=== PATIENT | female | born 1950 | race Caucasian/White ===

== ENCOUNTER 2023-05-25 03:22 | Inpatient (IN) | payer MEDICARE, MEDICAID, SELFPAY ==
[2023-05-25] VITALS (57 sets, daily range): BP systolic 69–173; BP diastolic 42–112; PULSE 68–93; RESP 4–25; TEMP 36.4–36.8; O2SAT 77–97
--- NOTE | 2023-05-25 03:15 | RT.EKG_ITS ---
APPROVED REPORT Exam: Resting ECG Reason for Exam: Chest pain Patient Location: E HR:79 bpm ECG Measurements Heart Rate 79 AXIS DC 167 P 56 QRSd 89 QRS 44 QT 398 T 80 QTc 458 Conclusion Sinus rhythm...normal P axis, V-rate 60- 99 Low voltage, precordial leads...precordial leads <1.0mV Narrow complex normal sinus rhythm with a rate of 79. Normal axis. Intervals within normal limits. Low voltage. No ST segment abnormalities. No T wave inversions. T wave flattening in leads I and aVL. No prior for comparison.
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
--- NOTE | 2023-05-25 03:30 | DI.CT_ITS ---
Exam(s) CT CHEST PE CTA EXAM: CT CHEST PE CTA CLINICAL HISTORY: Shortness of breath back pain. TECHNIQUE: Imaging Protocol: Axial CT angiography was performed with multi-slice acquisition and mu lti-planar reconstructions as well as axial, coronal and sagittal MIP reconstructions. CONTRAST MATERIAL: Intravenous: Omnipaque 350 Contrast volume:100 ml COMPARISON: None FINDINGS: Exam is limited by motion. Pulmonary Arteries: Main pulmonary arteries dilated which may indicate pulmonary hypertension. No ev idence of filling defect to suggest pulmonary emboli. Tracheobronchial tree: Patent where visualized. Mediastinum and Vira: No dominant adenopathy or fluid collection. Pulmonary parenchyma: Suboptimally evaluated due to expiratory changes and motion. Interstitial betancourt ges, likely chronic.. Mild emphysematous changes. No consolidation or dominant measurable mass. Pleura: No effusion or pneumothorax. Heart: The heart is mildly dilated, left atrium.. minimal coronary artery calcifications are seen. Aorta: Thoracic aorta non-dilated. No aneurysm. No dissection. Mild atherosclerotic changes. Upper abdomen: Severely limited due to streak artifact from patient's arm position. Bones: Degenerative changes. Tubes, Catheters, and Lines: None IMPRESSION: Exam limited by motion and streak artifact.. No evidence of pulmonary embolism. Dilated pulmonary arteries could indicate pulmonary hypertension . No aortic dissection. Mild emphysematous changes and chronic interstitial changes. RADIATION DOSE DELIVERED: 674.42mGy.cm Total DLP DATA REPOSITORY: All CT scans at this facility are submitted to the National Radiology Data Registry (NRDR) Dose Index Registry (DIR) with the [employer] (ACR). RADIATION OPTIMIZATION: All CT scans at this facility use at least one of these dose optimization te chniques: automated exposure control; mA and/or kV adjustment per patient size (includes targeted exa ms where dose is matched to clinical indication); or iterative reconstruction.
[2023-05-25] MEDS: Nystatin POWDER 15 GM JAR TP (04:07)
[2023-05-25] MEDS: Doxycycline Hyclate 100 MG CAP PO (04:07)
[2023-05-25] MEDS: predniSONE 20 MG TAB 60 MG PO (04:07)
[2023-05-25 04:14] LABS: BE (Venous) 3 mmol/L (-2-3); HCO3 (Venous) 29 mmol/L (23-28); O2 Sat (Venous) 66 %; TCO2 (Venous) 26 mmol/L (24-29); pCO2 (Venous) 53 mmHg (41-51); pH (Venous) 7.34 (7.31-7.41); pO2 (Venous) 34 mmHg
--- NOTE | 2023-05-25 04:15 | DI.US_ITS ---
APPROVED REPORT EXAM: Comprehensive 2D, Doppler, and color-flow Echocardiogram Patient Location: In-Patient Direct Care Worker: Venkat Mgiuel RDMS, RVT Indications: SOB, CHF, COPD, CP Other Information Study Quality: Poor. Technically limited study due to body habitus, inability to position patient, pa tient inability to perform breathing maneuvers. Conclusion Technically suboptimal study Left ventricle appears grossly normal in size. EF is 50 to 55%. No segmental wall motion abnormalit ies are identified Right ventricle appears mildly dilated Both atria are normal in size Aortic valve is probably trileaflet without stenosis or regurgitation Trace mitral and tricuspid regurgitation. Estimated right ventricular systolic pressure is 44 mmHg Wall motion Left Ventricle The left ventricle appears grossly normal size. Unable to perform measurements due to vertical orient ation of left ventricle due to body habitus. Left ventricular systolic function is borderline. There are no segmental wall motion abnormalities There is no ventricular septal defect visualized. LVEF is 50-55%. Right Ventricle Right ventricle is mildly dilated. Right ventricular systolic function appears grossly normal. The RV SP is 43.8 mmHg. Atria The left atrium size is normal. The right atrium size is normal. The interatrial septum is intact wit h no evidence for an atrial septal defect. Aortic Valve Aortic valve is probably trileaflet. There is no aortic valvular stenosis. No aortic regurgitation is present. Mitral Valve The mitral valve is normal in structure. No evidence of mitral valve stenosis. Trace mitral regurgita tion. Tricuspid Valve The tricuspid valve is normal in structure. There is no tricuspid valve stenosis. Trace tricuspid reg urgitation. Pulmonic Valve Pulmonic valve is not well visualized. There is no obvious pulmonic valvular regurgitation. Great Vessels The aortic root is normal in size. Ascending aorta is not well visualized. IVC is normal in size and collapses >50% with inspiration. Pericardium There is no pericardial effusion. 2D Dimensions Ao Root d 2.81 cm F: 2.7 - 3.3 LV Vol A2C d MOD 61.0 mL LVEF (Michelle's) 51.29 % F: 54 - 74 LV Vol A4C d MOD 73.2 mL LV Volume 50.41 mL F: 46 - 106 LV EF A4C MOD 51.5 % LV Volume Index 25.20 mL/m2 F: 29 - 61 LV EF A2C MOD 51.1 % LV Vol Biplane MOD 67.2 mL LV EF Biplane MOD 51.3 % SV 34.48 mL SV Index 17.22 mL/m2 M-Mode TAPSE 1.65 cm (M/F) >1.7 LV Diastology MV E' medial 0.109 (>0.07 m/s) E/A Ratio 0.6 LV E/e MED 5.10 (<14) MV E Vmax 0.56 (0.4-1.3 m/s) MV E' lateral 0.099 (>0.1 m/s) MV A Vmax 0.90 (0.4-1.3 m/s) LV E/e LAT 5.65 (<14) MV E/A Ratio 0.61 MV E/E' medial 5.15 MV E/E' lateral 5.66 Aortic Valve LVOT Area 3.11 cm2 AoV Area Vmax 2.56 cm2 LVOT Vmax 1.40 m/s AoV Area/ BSA (Vmax) 1.28 cm2/m2 LVOT Mean Micky. 0.87 m/s LEEANN Mean Micky. 2.38 cm2 LVOT Peak Grad 7.9 mmHg LEEANN Mean Micky. Index 1.19 cm2/m2 LVOT Mean Grad 3.6 mmHg LVOT VTI 0.239 m LVOT Diam s 1.95 cm AoV Vmax 1.71 m/s Velocity Ratio 0.82 AoV Mean Micky. 1.13 m/s AoV Peak Grad 11.7 mmHg LVOT SV 74.50 mL AoV Mean Grad 5.8 mmHg AoV VTI 0.282 m AoV Area VTI 2.64 cm2 AoV Area/ BSA (VTI) 1.32 cm/m2 Mitral Valve MV DT 283 (160-240 msec) MV PHT 82 msec MV Area PHT 2.68 cm2 MV VTI 0.215 m MV Area VTI 3.47 (4.0-6.0 cm2) Tricuspid Valve TR Peak Grad 40.8 mmHg TR Vmax 3.19 m/s RA Pressure 3.00 mmHg RVSP (TR) 43.8 mmHg
[2023-05-25 04:27] LABS: Abs Immature Grans 0.04 10^3/uL (0.0-0.06); Absolute Basophil Count 0.08 10^3/uL (0.0-0.2); Absolute Eosinophil Count 0.59 10^3/uL (0.0-0.7); Absolute Lymphocyte Count 2.35 10^3/uL (1.2-3.4); Absolute Monocyte Count 0.78 10^3/uL (0.1-0.8); Basophils % 0.7; Eosinophils % 5.1; HCT 48.4 % (36.0-46.0); Immature Grans % 0.3; Lymphocytes % 20.3; MCH 28.3 pg (27.0-33.0); MCV 91 fL (80-95); MPV 9.9 fL (8.0-11.0); Monocytes % 6.7; Neutrophils % 66.9; Platelet Count 310 10^3/uL (130-400); RDW 14.9 % (11.7-14.6); WBC 11.57 10^3/uL (4.4-10.8)
[2023-05-25 04:31] LABS: Absolute Neutrophil Count 7.74 10^3/uL (1.2-6.7)
[2023-05-25 05:03] LABS: ALT 26 U/L (14-59); AST 33 U/L (15-37); Albumin 3.5 g/dL (3.4-5.0); Alkaline Phosphatase 145 U/L (46-116); BUN 17 mg/dL (7-18); Bilirubin, Total 0.4 mg/dL (0.2-1.0); CREATININE 0.7 mg/dL (0.55-1.02); Calcium 9.2 mg/dL (8.5-10.1); Chloride 108 mmol/L (98-107); Glucose 123 mg/dL (74-106); NT-proBNP 235 pg/mL (<300); Potassium 4.6 mmol/L (3.5-5.1); Sodium 146 mmol/L (136-145); Total Protein 9.1 g/dL (6.4-8.2); Troponin I < 50 ng/L (<or=60)
[2023-05-25 05:05] LABS: COVID-19 PCR Negative (Negative); Influenza A PCR Negative (Negative); Influenza B PCR Negative (Negative); RSV PCR Negative (Negative)
[2023-05-25] MEDS: Omnipaque 350 MG/ML 100 ML BTL IJ (05:23)
[2023-05-25] MEDS: Normal Saline - Diluent 50 ML VIAL IJ (05:24)
[2023-05-25 05:26] LABS: Source Nasopharynx
--- NOTE | 2023-05-25 05:53 | DI.VRAD_ITS ---
PROCEDURE INFORMATION: Exam: CTA Chest With Contrast Exam date and time: 05/25/2023 5:01 AM Age: 72 years old Clinical indication: Shortness of breath; Other: Back pain; Additional info: Shortness of breath back pain TECHNIQUE: Imaging protocol: Computed tomographic angiography of the chest with contrast. Exam focused on the arteries. 3D rendering (Not supervised by radiologist): MIP and/or 3D reconstructed images were created by the technologist. Radiation optimization: All CT scans at this facility use at least one of these dose optimization techniques: automated exposure control; mA and/or kV adjustment per patient size (includes targeted exams where dose is matched to clinical indication); or iterative reconstruction. Contrast material: OMNI 350; Contrast volume: 100 ml; Contrast route: INTRAVENOUS (IV); COMPARISON: No relevant prior studies available. FINDINGS: Limitations: Extensive motion and streak artifact. Pulmonary arteries: Enlarged pulmonary trunk and main pulmonary arteries suggesting pulmonary hypertension. No large central pulmonary embolism seen in the pulmonary trunk or in the main pulmonary arteries. The small and distal pulmonary arteries are obscured by streak artifact and motion and poorly evaluated for diagnosis or exclusion of small or distal pulmonary emboli. Aorta: No thoracic aortic aneurysm Thyroid: Thyroid gland partially excluded from view and partially obscured by artifact but grossly unremarkable, as seen, through its visualized portion. Lungs: Mild changes of emphysema. Scattered small alveolar opacities and reticular densities, nonspecific. No region of della pulmonary consolidation. Pleural spaces: No pleural effusion or pneumothorax. Heart: Normal sized heart. Lymph nodes: No pathologically enlarged mediastinal or hilar lymph nodes. Liver: Upper abdominal contents almost completely obscured by motion and streak artifact. Indeterminate hepatic lesions with the largest measuring 3.7 cm x 4.0 cm on image 584 of series 7, poorly evaluated by the current exam. Bones/joints: No acute fracture seen among the bones of the chest. Soft tissues: No gross soft tissue mass or fluid collection seen in the chest wall. IMPRESSION: 1. Enlarged pulmonary trunk and main pulmonary arteries suggesting pulmonary hypertension. 2. No large central pulmonary embolism seen in the pulmonary trunk or in the main pulmonary arteries. The small and distal pulmonary arteries are obscured by streak artifact and motion and poorly evaluated for diagnosis or exclusion of small or distal pulmonary emboli. 3. Indeterminate hypoattenuating hepatic lesions, largely obscured by streak artifact and motion and poorly evaluated. Comparison with prior imaging is recommended. Dictated and Authenticated by: Frankie Daren MD. Ordering:KRISTY Bourgeois MD
[2023-05-25 07:04] LABS: Troponin I < 50 ng/L (<or=60)
[2023-05-25] MEDS: Aspirin 325 MG TAB PO (07:22)
[2023-05-25] MEDS: Furosemide 20 MG/2 ML VIAL IVP (07:22)
[2023-05-25] MEDS: nitroGLYcerin 0.4 MG TAB SL (07:23)
[2023-05-25 07:44] LABS: Lab Add On Test DONE
[2023-05-25 08:49] LABS: Procalcitonin < 0.1 ng/mL
[2023-05-25] MEDS: Ondansetron 4 MG/2 ML VIAL IVP (10:49)
[2023-05-25] MEDS: Pantoprazole 40 MG VIAL IVP (10:50)
[2023-05-25] MEDS: Acetaminophen 325 MG TAB PO ×2 (10:51→18:06)
[2023-05-25] MEDS: Atorvastatin 20 MG TAB PO (10:51)
[2023-05-25] MEDS: methylPREDNISolone SUCC 125 MG VIAL 60 MG IVP (10:51)
[2023-05-25] MEDS: Normal Saline Flush 10 ML SYR IVP ×2 (10:52→15:17)
[2023-05-25] MEDS: Enoxaparin 40 MG/0.4 ML SYR SC (10:52)
[2023-05-25] MEDS: Albuterol/Ipratropium 3 ML UPD VIAL UPD ×2 (12:12→18:25)
[2023-05-25] MEDS: oxyCODONE 15 MG TAB PO ×2 (15:16→21:07)
[2023-05-25] MEDS: Furosemide 40 MG/4 ML VIAL IVP (15:16)
--- NOTE | 2023-05-25 17:42 | TELEP.MEDR_ITS ---
Date of service: 05/25/23 Time of Service: 17:42 Telepharmacy Home Med Rec Allergies Allergies: Penicillins Allergy (Unknown, Unverified 05/25/23 03:42) Interview Person Interviewed: * Patient Quality Quality of Interview/Accuracy of Medication List: Excellent Sources Sources used to compile medication list: Xtract Medication List and SureScripts Changes made to Home Medication List: ADDITIONS: * Lisinopril 40mg PO daily * Doxepin 10mg PO HS * Toprol XL 100ml PO BID * Trazodone 150mg PO HS PRN * Symbicort 80/4.5 1 puff BID DELETIONS: * none CHANGES: * Nifedipine ER 30mg Po daily (changed from 60mg POdaily) * Pregabalin 150mg Po BID (changed from 150mg PO daily) Additional Notes Additional Notes: * none Recommended Changes Recommended Changes(reason for recommendation): * none Attestation: The home medication list is now updated to the best of my knowledge and is ready to be reconciled by the provider. Please contact the [facility] Medication Reconciliation Pharmacist at for any questions.
--- NOTE | 2023-05-25 17:42 | TELEP.MEDREC ---
Date of service: 05/25/23 Time of Service: 17:42 Telepharmacy Home Med Rec Allergies Allergies: Penicillins Allergy (Unknown, Unverified 05/25/23 03:42) Interview Person Interviewed: Patient Quality Quality of Interview/Accuracy of Medication List: Excellent Sources Sources used to compile medication list: Walk-in Medication List and SureScripts Changes made to Home Medication List: ADDITIONS: Lisinopril 40mg PO daily Doxepin 10mg PO HS Toprol XL 100ml PO BID Trazodone 150mg PO HS PRN Symbicort 80/4.5 1 puff BID DELETIONS: none CHANGES: Nifedipine ER 30mg Po daily (changed from 60mg POdaily) Pregabalin 150mg Po BID (changed from 150mg PO daily) Additional Notes Additional Notes: none Recommended Changes Recommended Changes(reason for recommendation): none Attestation: The home medication list is now updated to the best of my knowledge and is ready to be reconciled by the provider. Please contact the TelePharmacy Medication Reconciliation Pharmacist at for any questions.
--- NOTE | 2023-05-25 20:45 | HPE_ITS ---
Date of service: 05/25/23 Time of Service: 09:45 Assessment and Plan Assessment and plan (1) Acute respiratory failure with hypoxia and hypercarbia: Status: Acute Assessment and plan: Due to a combination of CHF and COPD exacerbations/acute bronchitis. Treat with diuretics, steroids, nebulizer treatments, antitussives, empiric doxycycline. Procalcitonin negative. Obtain sputum culture. No evidence of PNA on imaging. (2) Acute on chronic right-sided congestive heart failure: Status: Acute Assessment and plan: As above Diurese. (3) COPD with acute exacerbation: Status: Acute Assessment and plan: As above (4) Musculoskeletal chest pain: Status: Acute Assessment and plan: Treat with scheduled tylenol, oxycodone prn. The patient is also on lyrica. (5) Radiculopathy: Status: Chronic Assessment and plan: I will change the frequency of oxycodone to QID, but will also schedule tylenol. Trial heat. On lyrica. (6) Discharge planning issues: Status: Acute Assessment and plan: Full code C/s PT (7) DVT prophylaxis: Status: Acute Assessment and plan: SC enoxaparin History of Present Illness History of Present Illness Chief Complaint: cough, shortness of breath Narrative: MS Ruby is a 72 year old female with PMHx of non-oxygen dependent COPD, CHFpEF, h/o pulmonary hypertension, h/o prior intentional overdose on BB, for which she had a prolonged hospitalization, including a psychiatric stay, at [facility] in January of this year, who now resides at an [facility] home and was brought to [facility] ED this morning with a couple of days of worsening shortness of breath, productive cough, but no fevers/chills. The patient described vomiting phlegm. She also reported chest pain, which was central, worse with inspiration and cough. She additionally had LUE pain and neck pain - this is chronic, and she takes oxycodone for it. She says she is compliant wiht a low sodium diet, has not gained weight, though she has noticed worsening swelling. Sputum is yellow in color. She states she spent all day yesterday vomiting sputum. In the ER, she was found to be wheezing and fluid overloaded. She required 1L of O2 to saturate 90%. She was found to be edematous. She received IV furosemide as she also had evidence of B lines on POCUS in the ER. Hospitalist admission was requested. While there was a report of hypotension upon arrival to the medical surgical floor, this was not confirmed on a manula recheck and the patient has actually been hypertensive since then. On my repeat visit to get more history, the patient is not satisfied with her pain control, even though her pain is chronic and she got her chronic pain medications for it. She dismisses me from the room, saying thank you, thank you very much, you have a good night. Review of Systems All systems reviewed & are unremarkable except as noted in HPI and below PFSH All Active Problems (Updated 05/25/23 @ 21:36 by Joselyn Felix MD) Radiculopathy (Chronic) Musculoskeletal chest pain (Acute) Discharge planning issues (Acute) DVT prophylaxis (Acute) Acute on chronic right-sided congestive heart failure (Acute) Candidiasis of breast (Acute) Acute respiratory failure with hypoxia and hypercarbia (Acute) COPD with acute exacerbation (Acute) Medical History (Updated 05/25/23 @ 21:36 by Joselyn Felix MD) (HFpEF) heart failure with preserved ejection fraction HTN (hypertension) with goal to be determined Intentional overdose Obesity Social History Smoking/Tobacco Use Status: Current every day Smoking risk assessment performed?: Yes Alcohol Intake: never Drug use: Never Substance use type: does not use Housing: house Meds Allergies and Home Medications Allergies Allergy/AdvReac Type Severity Reaction Status Date / Time Penicillins Allergy Unknown Unverified 05/25/23 03:42 Home Medications Medication Instructions Recorded Confirmed Type albuterol sulfate 90 mcg/actuation 2 puff inhalation QID PRN 05/25/23 05/25/23 History aerosol inhaler atorvastatin 20 mg tablet 20 mg PO DAILY 05/25/23 05/25/23 History budesonide-formoterol HFA 80 1 puff inhalation BID 05/25/23 05/25/23 History mcg-4.5 mcg/actuation aerosol inhaler (Symbicort) doxepin 10 mg capsule 10 mg PO HS 05/25/23 05/25/23 History duloxetine 40 mg capsule,delayed 40 mg PO BID 05/25/23 05/25/23 History release furosemide 20 mg tablet 20 mg PO DAILY 05/25/23 05/25/23 History lisinopril 40 mg tablet 40 mg PO DAILY 05/25/23 05/25/23 History melatonin 10 mg tablet 10 mg PO HS PRN 05/25/23 05/25/23 History metoprolol succinate 100 mg 100 mg PO BID 05/25/23 05/25/23 History tablet,extended release 24 hr nifedipine 30 mg tablet,extended 30 mg PO DAILY 05/25/23 05/25/23 History release oxycodone 15 mg tablet 15 mg PO TID PRN 05/25/23 05/25/23 History pantoprazole 40 mg tablet,delayed 40 mg PO DAILY 05/25/23 05/25/23 History release pregabalin 150 mg capsule 150 mg PO BID 05/25/23 05/25/23 History sennosides 8.6 mg tablet (senna) 8.6 mg PO DAILY PRN 05/25/23 05/25/23 History trazodone 150 mg tablet 150 mg PO HS PRN 05/25/23 05/25/23 History Exam Narrative Exam Narrative: General: Pleasant elderly female who appears uncomfortable, A&Ox3, on 1L of O2 Neurological: A&Ox3, not able to move RLE Psychiatric: Appropriate speech pattern/content Skin: Visible skin intact HEENT: Atraumatic, normocephalic, EOMI, MMM, clear oropharynx, no submandibular or cervical lymphadenopathy, no goiter or JVD Cardiovascular: RRR, no m/r/g, CP is reproducible with palpation Lungs: Wheezing and rales on expiration B Gastrointestinal: soft, nontender, nondistended Genitourinary: did not have a franco Extremities: 1+ BLE edema, not moving RLE Results Imaging Additional studies: CTA chest: Exam limited by motion and streak artifact.. No evidence of pulmonary embolism. ? Dilated pulmonary arteries could indicate pulmonary hypertension. No aortic dissection. Mild emphysematous changes and chronic interstitial changes. Echo: Left ventricle appears grossly normal in size.? EF is 50 to 55%.? No segmental wall motion abnormalities are identified Right ventricle appears mildly dilated Both atria are normal in size Aortic valve is probably trileaflet without stenosis or regurgitation Trace mitral and tricuspid regurgitation. Estimated right ventricular systolic pressure is 44 mmHg EKG: NSR, HR 79, no acute ischemia Labs 05/25/23 03:46 05/25/23 03:46 Labs: Laboratory Results - last 24 hr 05/25/23 05/25/23 05/25/23 03:46 03:46 03:46 WBC 11.57 H RBC 5.30 H Hgb 15.0 Hct 48.4 H MCV 91 MCH 28.3 MCHC 31.0 L RDW 14.9 H Plt Count 310 MPV 9.9 Immature Gran % 0.3 Neutrophils % 66.9 Lymphocytes % 20.3 Monocytes % 6.7 Eosinophils % 5.1 Basophils % 0.7 Nucleated RBC % 0.0 Absolute Neutrophils 7.74 H Absolute Lymphocytes 2.35 Absolute Monocytes 0.78 Absolute Eosinophils 0.59 Absolute Basophils 0.08 VBG pH VBG pCO2 VBG pO2 VBG HCO3 VBG Total CO2 VBG O2 Saturation VBG Base Excess Sodium 146 H Potassium 4.6 Chloride 108 H Carbon Dioxide 28.0 Anion Gap 10.0 BUN 17 Creatinine 0.7 Est GFR (CKD-EPI 2020) 90.70 Glucose 123 H Calcium 9.2 Total Bilirubin 0.4 AST 33 ALT 26 Alkaline Phosphatase 145 H Troponin I < 50 NT-Pro-B Natriuret Pep 235 Total Protein 9.1 H Albumin 3.5 Procalcitonin COVID-19 Source Nasopharynx SARS-CoV-2 (PCR) Negative Influenza Type A (PCR) Negative Influenza Type B (PCR) Negative RSV (PCR) Negative Add-On Test Request 05/25/23 05/25/23 05/25/23 03:46 03:46 06:40 WBC RBC Hgb Hct MCV MCH MCHC RDW Plt Count MPV Immature Gran % Neutrophils % Lymphocytes % Monocytes % Eosinophils % Basophils % Nucleated RBC % Absolute Neutrophils Absolute Lymphocytes Absolute Monocytes Absolute Eosinophils Absolute Basophils VBG pH 7.34 VBG pCO2 53 H VBG pO2 34 VBG HCO3 29 H VBG Total CO2 26 VBG O2 Saturation 66 VBG Base Excess 3 Sodium Potassium Chloride Carbon Dioxide Anion Gap BUN Creatinine Est GFR (CKD-EPI 2020) Glucose Calcium Total Bilirubin AST ALT Alkaline Phosphatase Troponin I < 50 NT-Pro-B Natriuret Pep Total Protein Albumin Procalcitonin < 0.1 COVID-19 Source SARS-CoV-2 (PCR) Influenza Type A (PCR) Influenza Type B (PCR) RSV (PCR) Add-On Test Request 05/25/23 07:44 WBC RBC Hgb Hct MCV MCH MCHC RDW Plt Count MPV Immature Gran % Neutrophils % Lymphocytes % Monocytes % Eosinophils % Basophils % Nucleated RBC % Absolute Neutrophils Absolute Lymphocytes Absolute Monocytes Absolute Eosinophils Absolute Basophils VBG pH VBG pCO2 VBG pO2 VBG HCO3 VBG Total CO2 VBG O2 Saturation VBG Base Excess Sodium Potassium Chloride Carbon Dioxide Anion Gap BUN Creatinine Est GFR (CKD-EPI 2020) Glucose Calcium Total Bilirubin AST ALT Alkaline Phosphatase Troponin I NT-Pro-B Natriuret Pep Total Protein Albumin Procalcitonin COVID-19 Source SARS-CoV-2 (PCR) Influenza Type A (PCR) Influenza Type B (PCR) RSV (PCR) Add-On Test Request DONE Last Vital Signs Temp 36.5 C 05/25/23 19:40 Pulse 90 05/25/23 19:40 Resp 19 05/25/23 19:40 BP 101/69 05/25/23 19:40 Pulse Ox 88 L 05/25/23 19:40 Time Spent Time spent with Patient: 40-54 minutes Time was spent: preparing to see the patient(eg.review tests), obtaining and/or reviewing separately otained hiistory, ordering medications,tests, procedures, referring, communicating with other health critical care nurse, indepentently interpreting results, counseling the patient and care coordination
[2023-05-25] MEDS: Melatonin 3 MG TAB 9 MG PO (21:07)
[2023-05-25] MEDS: Pregabalin 150 MG CAP PO (21:08)
[2023-05-25] MEDS: DULoxetine 20 MG CAP 40 MG PO (23:26)
[2023-05-25] MEDS: Doxepin 10 MG CAP PO (23:27)
[2023-05-25] MEDS: Acetaminophen 325 MG TAB 1000 MG PO (23:29)
[2023-05-26] VITALS (15 sets, daily range): BP systolic 93–140; BP diastolic 57–81; PULSE 60–84; RESP 2–20; TEMP 36.2–37; O2SAT 83–96
--- NOTE | 2023-05-26 | DI.US_ITS ---
Exam(s) US EXTREMITY VENOUS BI EXAM: US EXTREMITY VENOUS BI CLINICAL HISTORY: BLE edema. TECHNIQUE: Bilateral lower extremity venous ultrasound performed using grayscale, color-flow, and sp ectral Doppler analysis. COMPARISON: No exams were available for comparison FINDINGS: The bilateral common femoral, femoral and popliteal veins demonstrate normal compressibility, augment ation, and color Doppler. The posterior tibial veins are patent. IMPRESSION: Right: Negative for DVT Left: Negative for DVT DATA REPOSITORY:
[2023-05-26] MEDS: Ketorolac 15 MG/ML VIAL IVP (02:22)
[2023-05-26] MEDS: Metoprolol 50 MG TAB PO ×2 (02:22→08:21)
[2023-05-26] MEDS: Albuterol/Ipratropium 3 ML UPD VIAL UPD ×3 (05:39→18:56)
[2023-05-26 07:30] LABS: Abs Immature Grans 0.07 10^3/uL (0.0-0.06); Absolute Basophil Count 0.03 10^3/uL (0.0-0.2); Absolute Eosinophil Count 0.04 10^3/uL (0.0-0.7); Absolute Monocyte Count 1.03 10^3/uL (0.1-0.8); Basophils % 0.2; Eosinophils % 0.3; HCT 42.4 % (36.0-46.0); HGB 13.1 g/dL (11.2-15.7); Immature Grans % 0.5; Lymphocytes % 21.8; MCH 27.9 pg (27.0-33.0); MCHC 30.9 % (32.0-36.0); MCV 90 fL (80-95); MPV 9.6 fL (8.0-11.0); Monocytes % 8.1; Neutrophils % 69.1; Platelet Count 310 10^3/uL (130-400); RBC 4.69 10^6/uL (3.93-5.22); RDW 14.9 % (11.7-14.6); RDW-SD 49.5 fL; WBC 12.73 10^3/uL (4.4-10.8)
[2023-05-26 07:36] LABS: Absolute Lymphocyte Count 2.78 10^3/uL (1.2-3.4)
[2023-05-26 07:56] LABS: Anion Gap 7.7 mmol/L (3-11); BUN 32 mg/dL (7-18); CO2 29.3 mmol/L (21.0-32.0); CREATININE 1.1 mg/dL (0.55-1.02); Calcium 8.4 mg/dL (8.5-10.1); Chloride 106 mmol/L (98-107); Estimated GFR 52.73 (mL/min/1.73m2); Glucose 125 mg/dL (74-106); Magnesium 1.8 mg/dL (1.8-2.4); Potassium 4.1 mmol/L (3.5-5.1); Sodium 143 mmol/L (136-145)
[2023-05-26] MEDS: predniSONE 20 MG TAB 40 MG PO (08:21)
[2023-05-26] MEDS: Pregabalin 150 MG CAP PO ×2 (08:21→20:34)
[2023-05-26] MEDS: Doxycycline Hyclate 100 MG CAP PO ×2 (08:21→20:33)
[2023-05-26] MEDS: DULoxetine 20 MG CAP 40 MG PO ×2 (08:21→20:34)
[2023-05-26] MEDS: Acetaminophen 500 MG TAB 1000 MG PO ×2 (08:21→16:20)
[2023-05-26] MEDS: Lisinopril 20 MG TAB 40 MG PO (08:21)
[2023-05-26] MEDS: Pantoprazole 40 MG VIAL IVP (08:22)
[2023-05-26] MEDS: Normal Saline Flush 10 ML SYR IVP ×2 (08:22→16:21)
[2023-05-26] MEDS: Atorvastatin 20 MG TAB PO (08:22)
[2023-05-26] MEDS: Furosemide 40 MG/4 ML VIAL IVP ×3 (08:22→22:08)
[2023-05-26] MEDS: Budesonide/Formoterol 80/4.5 6.9 GM 60 PUFF INH IH ×2 (08:31→19:34)
[2023-05-26] MEDS: oxyCODONE 15 MG TAB PO ×3 (08:37→16:20)
[2023-05-26] MEDS: Enoxaparin 40 MG/0.4 ML SYR SC (09:33)
--- NOTE | 2023-05-26 12:09 | PDOC.CMIN ---
Date of service: 05/26/23 Time of Service: 12:09 Care Management Initial Assmt Initial Assessment REASON FOR HOSPITALIZATION:: Acute respiratory failure with hypoxia and hypercarbia; COPD exacerbation PREVIOUS FUNCTIONAL STATUS/SOCIAL/FAMILY SUPPORTS:: Lauren currently lives in an [facility] home in [place], although she is from [place], [place]. Her [facility] home provider is Jessica Garcia, and her social work case manager is Jana, through [facility]. She has two daughters; per Jana, Kassidy assists her mother with health care decisions, as she is an RN at [employer] [employer] [employer]. Lauren was living independently in her own apartment in [place] until she had a prolonged stay at [facility] in the Psychiatric unit, prior to being placed in her [facility] home. CURRENT FUNCTIONAL STATUS:: Lauren was sitting up in bed when CM met with her. PT was in the room, preparing to work with her. Lauren stated that she does not want to return to the [facility] home where she resides, and she wants to return to her apartment in [place]. She also stated that she has a lot of belongings at the [facility] home which she will need to retrieve. CM discussed this with Lauren, stating that there are concerns from her care team in the community about her ability to return home. The plan will be for her to return to [facility] home, and for her to coordinate an alternate living situation with her community artist, Jana. She agreed to discuss her living situation with Jana; CM called Jana and requested that she contact Lauren. CM will continue to follow. ADVANCE DIRECTIVES:: Not on file at [facility]; Jana will fax a copy. Has patient been provided with info about the portal/API?: Yes Did the patient sign up for the portal?: No CODE STATUS:: Full Code INSURANCE COVERAGE / FINANCIAL ISSUES:: [employer] MCR replacement; [place] [facility] CURRENT HOME/COMMUNITY SERVICES/EQUIPMENT:: Lauren lives in an [facility] home where she has 12/06 care. PRIMARY CARE PHYSICIAN:: Niko Guerrero, [facility] in [place] POTENTIAL DISCHARGE NEEDS:: Coordinated return to [facility] home. PATIENT/FAMILY EDUCATION NEEDS:: Review discharge instructions and limitations, discussion of self care needs including ask me three. ANTICIPATED BARRIERS TO DISCHARGE:: Lauren would like to return to her apartment, although her family and service providers do not feel that she is safe to return home. TRANSPORTATION:: Via home care provider vs [facility] PLAN:: Anticipate Lauren will return to her [facility] home once medically cleared. She will likely transport via private vehicle by her [facility] home care provider vs [facility]. She will follow up with her PCP and discharge plan of care. CM will continue to follow. PFSH All Active Problems (Updated 05/25/23 @ 21:36 by Joselyn Felix MD) Radiculopathy (Chronic) Musculoskeletal chest pain (Acute) Discharge planning issues (Acute) DVT prophylaxis (Acute) Acute on chronic right-sided congestive heart failure (Acute) Candidiasis of breast (Acute) Acute respiratory failure with hypoxia and hypercarbia (Acute) COPD with acute exacerbation (Acute) Medical History (Updated 05/25/23 @ 21:36 by Joselyn Felix MD) (HFpEF) heart failure with preserved ejection fraction HTN (hypertension) with goal to be determined Intentional overdose Obesity Social History Smoking/Tobacco Use Status: Current every day Smoking risk assessment performed?: Yes Alcohol Intake: never Drug use: Never Substance use type: does not use Housing: house
--- NOTE | 2023-05-26 16:10 | IN_ITS ---
Date of service: 05/26/23 PT Notes Visit Reasons: Acute Exacerbation of CHF,?COPD,Pulmonary Hyperten Physical Therapy Inpatient Initial Evaluation Date: 05/26/2023 Referring Doctor: Joselyn Felix MD PT Orders: PT CONSULT: Limited ability Precautions: Fall. Standard. Activity as tolerated. Patient Profile/Admitting Diagnosis: Lauren is a 72-year-old female admitted to the ED due to worsening cough and shortness of breath. Patient is admitted to [facility] for management of acute respiratory failure with hypoxia and hypercarbia, acute on chronic right-sided CHF, COPD exacerbation, as well as musculoskeletal chest pain, and radiculopathy. PMHX: All Active Problems?(Updated 05/25/23 @ 21:36 by Joselyn Felix MD) Radiculopathy (Chronic) Musculoskeletal chest pain (Acute) Discharge planning issues (Acute) DVT prophylaxis (Acute) Acute on chronic right-sided congestive heart failure (Acute) Candidiasis of breast (Acute) Acute respiratory failure with hypoxia and hypercarbia (Acute) COPD with acute exacerbation (Acute) Medical History?(Updated 05/25/23 @ 21:36 by Joselyn Felix MD) (HFpEF) heart failure with preserved ejection fraction HTN (hypertension) with goal to be determined Intentional overdose Obesity Social History/Home Situation: Lived at an [facility] in [place] for 3 weeks now. Previously had her own apartment in [place], [place] close to her 2 daughters. Sun Moulton is her community employment evaluator/case manager. 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 Equipment Owned/DME: Electric scooter, shower chair, FWW, emergency alert device Subjective: Lauren is adamant about not going back to the [facility] home she came from. She verbalized some complaints about her [facility] provider which ALLIE Smith are aware of. She explains that she had a previous injury that caused a deformity of her R lower extremity which she could not feel nor use to ambulate anymore. She adds that she has been wheelchair-bound, she uses her electric scooter as her main mode of mobility at the [facility]. She is able to transfer by doing a pivot with the L lower extremity while holding onto transfer surface. She elaborates that in the past year, she has fallen a total of three times including this last fall. She adds that she the most recent one happened because she was emotionally distraught from dealing with her AF provider. The other fall happened because she was terribly sick and weak. She declined offer of this PT to try front-wheeled walker to safely transfer saying that she is contented with how she has been doing stuff her own way. She agreed to show this provider how she transfers. She reports of back pain that she states has been chronic. She does not feel that there is a decline in her ability to transfer. Objective: General Observation: Shortened and externally rotated R LE at he hip. Telemetry monitoring in place. Mental Status: Alert and oriented as to person, place, time, and purpose. Able to pay attention, focus, and respond appropriately. Pain: Minimal pain in back and L leg Vital Signs: Closley moniored via tele ROM: Right Upper Extremity: Shoulder Flexion WFL. Shoulder abduction WFL. Elbow flexion WFL. Wrist flexion WFL. Functional opening and closing of hand WFL. Left Upper Extremity: Shoulder Flexion WFL. Shoulder abduction WFL. Elbow flexion WFL. Wrist flexion WFL. Functional opening and closing of hand WFL. Right Lower Extremity: Hip flexion unable. Hip abduction unable. Knee flexion unable. Ankle dorsiflexion about 10 degrees. Ankle plantarflexion about 10 degrees. Left Lower Extremity: Hip flexion WFL. Hip abduction WFL. Knee flexion WFL. Ankle dorsiflexion WFL. Ankle plantarflexion WFL. Strength: Right Upper Extremity: Shoulder flexors 5/5. Shoulder abductors 5/5. Elbow flexors 5/5. Elbow extensors 5/5. Multiple Effect Evaporator Operator strong. Left Upper Extremity: Shoulder flexors 5/5. Shoulder abductors 5/5. Elbow flexors 5/5. Elbow extensors 5/5. Multiple Effect Evaporator Operator strong. Right Lower Extremity: Hip flexors 0/5. Hip abductors 0/5. Knee flexors 0/5. Knee extensors 0/5. Ankle dorsiflexors 2-/5. Ankle plantarflexors 2-/5. Left Lower Extremity: Hip flexors 4/5. Hip abductors 4/5. Knee flexors 5/5. Knee extensors 4/5. Ankle dorsiflexors 4/5. Ankle plantarflexors 4/5. Bed Mobility/Transfers: Rolling independent Supine to sit independent Sit to supine independent Sit to stand independent after set up while holding onto transfer surface Stand to sit independent after set up while holding onto transfer surface Bed to reclining chair independent after set up while holding onto transfer surface Reclining chair to bed independent after set up while holding onto transfer surface Gait: N/A. Patient wheelchair-bound. Balance: Static Sitting: Normal Dynamic Sitting: Normal Static Standing: Fair Dynamic Standing: Fair Special Tests: Mobility Limitations Standardized Measure [facility]-PAC 6 clicks Basic Mobility Inpatient Short Form: Raw Score: 21 CMS Score: 29% deficit Informed Consent/Education: Patient was instructed in purpose of PT consult and plan of care. She does not feel that she needs physical therapy because she has declined with her mobility skills as she demonstrated during this evaluation. ASSESSMENT: Patient independently transferred from edge of bed to the wheelchair safely after set up leading with her good L LE with no report of increased back pain. The set up by PT was needed because patient is in a different environment. At the [facility], patient is able to maneuver the toggle in the armrest of her her electric chair to safely position wheelchair in relation to her bed so that she can safely transfer. Patient refused offer of services and with trying out alternative ways to safely move using FWW. She was minimally short of breath but was able to recover with rest. Instructions for set up prior to transfer: 1. For bed to chair transfer, position chair at an angle as close to the head of bed so patient can hold onto chair arm rests. She does not want you to be close so give her space. Patient is able to pivot onto chair on her own while holding onto arm rests. 2. For chair to bed transfer, position chair at an angle close to the foot of the bed so patient can hold onto chair arm rests. She does not want you to be close so give her space. Patient is able to pivot onto bed on her own while holding onto bed rail. Patient presents with clinical signs and symptoms consistent with current/admitting diagnoses that have resulted to mobility limitations, gait instability, generalized weakness, and overall ADL decline as demonstrated by the following impairment level findings: 1. Decreased strength to R LE major muscle groups (chronic) 2. Impaired sitting/standing balance 3. Impaired activity tolerance 4. Limitation of joint range of motion in R LE 5. Shortness of breath Impairments are contributing to the following functional limitations: 1. Increased completion time for mobility ADL performance 2. At risk for falls Patient is assessed as a low complexity based on the following: History: 72-year-old female with past medical history as indicated above Examination: Demonstrable impairment in strength, balance, and mobility level with underlying impairments and functional limitations as exhibited above as well as deficit score of 29% utilizing the [facility] Mobility Inpatient Short Form Presentation: Evolving Decision Makin moderate complexity Goals: Goals X1 week N/A. PT evaluation only. Plan of Care/Treatment Plan: N/A. PT evaluation only. DISCHARGE RECOMMENDATIONS: [X] Home with no service. Home when medically cleared by hospitalist. Refusing therapy services. May benefit from PT/OT to assess safty of home environment. [] Home with services [specify] [] Home with outpatient PT [] [] SNF for continued rehabilitation [] [] Field Services Manager Care [] [] SNF versus LTC based on ability to participate and progress [] TREATMENT CODE/TIME: 24756 x 20 minutes, 56358 x 10 minutes beginning at 15:20 PM. Thank you for the opportunity to participate in the care of this patient. Ariana Mir PT, DPT, CLT [facility] [place], [place]
--- NOTE | 2023-05-26 18:49 | W.PM.PROGNOT ---
Date of Service Date of service: 05/26/23 Time of Service: 18:49 Assessment and Plan Assessment and plan (1) Acute respiratory failure with hypoxia and hypercarbia: Status: Acute Assessment and plan: Due to a combination of CHF and COPD exacerbations/acute bronchitis. Increase diuresis. Continue steroids, nebulizer treatments, antitussives, empiric doxycycline. Procalcitonin negative. I do not see that the sputum culture had been collected, and now her cough is reportedly unproductive. No evidence of PNA on imaging. (2) Acute on chronic right-sided congestive heart failure: Status: Acute Assessment and plan: As above Intensify diuresis. (3) COPD with acute exacerbation: Status: Acute Assessment and plan: As above (4) Musculoskeletal chest pain: Status: Acute Assessment and plan: Treat with scheduled tylenol, oxycodone prn. The patient is also on lyrica. (5) Radiculopathy: Status: Chronic Assessment and plan: As the pain is now better, return to prior (outpatient) dosing of oxycodone. Continue scheduled tylenol. Trial heat. On lyrica. (6) Discharge planning issues: Status: Acute Assessment and plan: Full code PT consulted. Not ready for discharge (7) DVT prophylaxis: Status: Acute Assessment and plan: SC enoxaparin Subjective Subjective Interval history since last seen: Ms Ruby states that she is feeling a lot better. She does not have chest pain today, her breathing is better, coughing has stopped. Denies dizziness/nausea. I just want to go home - to [place]. We discussed that the plan is for her to return to the [facility] home from where the transfer to [place] could be coordinated by her community health care legal assistant. The patient verbalized understanding and agreement. Exam Narrative Exam Narrative: General: Pleasant elderly female who appears is on RA, A&Ox3, audibly wheezing Cardiovascular: RRR, no m/r/g Lungs: I think her rhonchi are louder today; also has rales. Gastrointestinal: soft, nontender, nondistended Genitourinary: no franco Extremities: 1+ BLE edema, improved, has wrinkles; not moving RLE Objective Last Vital Signs Temp 36.3 C L 05/26/23 16:19 Pulse 71 05/26/23 16:19 Resp 19 07/07/23 16:19 BP 130/67 05/26/23 16:19 Pulse Ox 91 L 05/26/23 16:19 Laboratory Results - last 24 hr 05/26/23 05/26/23 07:10 07:10 WBC 12.73 H RBC 4.69 Hgb 13.1 Hct 42.4 MCV 90 MCH 27.9 MCHC 30.9 L RDW 14.9 H Plt Count 310 MPV 9.6 Immature Gran % 0.5 Neutrophils % 69.1 Lymphocytes % 21.8 Monocytes % 8.1 Eosinophils % 0.3 Basophils % 0.2 Nucleated RBC % 0.0 Absolute Neutrophils 8.80 H Absolute Lymphocytes 2.78 Absolute Monocytes 1.03 H Absolute Eosinophils 0.04 Absolute Basophils 0.03 Sodium 143 Potassium 4.1 Chloride 106 Carbon Dioxide 29.3 Anion Gap 7.7 BUN 32 H Creatinine 1.1 H Est GFR (CKD-EPI 2020) 52.73 Glucose 125 H Calcium 8.4 L Magnesium 1.8 Time Spent with Patient Time Spent with Patient: 25-34 minutes Time was spent: preparing to see the patient(eg.review tests), obtaining and/or reviewing separately otained hiistory, ordering medications,tests, procedures, referring, communicating with other health care management specialist, indepentently interpreting results, counseling the patient and care coordination
[2023-05-26] MEDS: traZODone 50 MG TAB 150 MG PO (20:33)
[2023-05-26] MEDS: Melatonin 3 MG TAB 9 MG PO (20:40)
[2023-05-26] MEDS: NIFEdipine-CR 30 MG TABCR PO (22:06)
[2023-05-26] MEDS: Doxepin 10 MG CAP PO (22:11)
[2023-05-27] VITALS (8 sets, daily range): BP systolic 91–128; BP diastolic 62–79; PULSE 66–78; RESP 4–22; TEMP 36.1–37.1; O2SAT 86–94
[2023-05-27] MEDS: Acetaminophen 500 MG TAB 1000 MG PO ×3 (00:30→15:28)
[2023-05-27] MEDS: Albuterol/Ipratropium 3 ML UPD VIAL UPD ×3 (05:49→17:39)
[2023-05-27 07:23] LABS: Abs Immature Grans 0.04 10^3/uL (0.0-0.06); Absolute Basophil Count 0.05 10^3/uL (0.0-0.2); Absolute Eosinophil Count 0.08 10^3/uL (0.0-0.7); Absolute Lymphocyte Count 3.55 10^3/uL (1.2-3.4); Absolute Monocyte Count 0.98 10^3/uL (0.1-0.8); Absolute Neutrophil Count 7.38 10^3/uL (1.2-6.7); Basophils % 0.4; Eosinophils % 0.7; HCT 43.6 % (36.0-46.0); HGB 13.6 g/dL (11.2-15.7); Immature Grans % 0.3; Lymphocytes % 29.4; MCH 28.3 pg (27.0-33.0); MCHC 31.2 % (32.0-36.0); MCV 91 fL (80-95); Monocytes % 8.1; Neutrophils % 61.1; RDW 14.9 % (11.7-14.6); RDW-SD 49.6 fL; WBC 12.08 10^3/uL (4.4-10.8)
[2023-05-27] MEDS: Doxycycline Hyclate 100 MG CAP PO ×2 (07:35→20:36)
[2023-05-27] MEDS: Pregabalin 150 MG CAP PO ×2 (07:35→20:36)
[2023-05-27 07:36] LABS: Anion Gap 10.2 mmol/L (3-11); BUN 39 mg/dL (7-18); CO2 28.8 mmol/L (21.0-32.0); CREATININE 0.9 mg/dL (0.55-1.02); Calcium 8.4 mg/dL (8.5-10.1); Chloride 107 mmol/L (98-107); Estimated GFR 67.08 (mL/min/1.73m2); Glucose 104 mg/dL (74-106); Magnesium 1.7 mg/dL (1.8-2.4); Potassium 3.7 mmol/L (3.5-5.1); Sodium 146 mmol/L (136-145)
[2023-05-27] MEDS: DULoxetine 20 MG CAP 40 MG PO ×2 (07:36→20:36)
[2023-05-27] MEDS: Lisinopril 20 MG TAB 40 MG PO (07:36)
[2023-05-27] MEDS: predniSONE 20 MG TAB 40 MG PO (07:36)
[2023-05-27] MEDS: Pantoprazole 40 MG VIAL IVP (07:36)
[2023-05-27] MEDS: Furosemide 40 MG/4 ML VIAL 60 MG IVP ×2 (07:36→15:28)
[2023-05-27] MEDS: Atorvastatin 20 MG TAB PO (07:36)
[2023-05-27] MEDS: Normal Saline Flush 10 ML SYR IVP ×2 (07:37→15:28)
[2023-05-27 07:45] LABS: Diff Comment Diff Reviewed; RBC Morphology Normal
[2023-05-27] MEDS: oxyCODONE 15 MG TAB PO ×3 (07:47→20:37)
[2023-05-27] MEDS: Budesonide/Formoterol 80/4.5 6.9 GM 60 PUFF INH IH ×2 (07:52→19:24)
[2023-05-27] MEDS: Enoxaparin 40 MG/0.4 ML SYR SC (09:40)
--- NOTE | 2023-05-27 16:35 | W.PM.PROGNOT ---
Date of Service Date of service: 05/27/23 Time of Service: 16:38 Assessment and Plan Assessment and plan (1) Acute respiratory failure with hypoxia and hypercarbia: Status: Acute Assessment and plan: Due to a combination of CHF and COPD exacerbations/acute bronchitis. Now on RA with O2 saturations generally in the low 90's. Diuresing. Continue steroids, nebulizer treatments, antitussives, empiric doxycycline. Procalcitonin negative. No evidence of PNA on imaging. (2) Acute on chronic right-sided congestive heart failure: Status: Acute Assessment and plan: As above Intensify diuresis. (3) COPD with acute exacerbation: Status: Acute Assessment and plan: As above (4) Musculoskeletal chest pain: Status: Acute Assessment and plan: Treat with scheduled tylenol, oxycodone prn. The patient is also on lyrica. (5) Radiculopathy: Status: Chronic Assessment and plan: As the pain is now better, has returned to prior (outpatient) dosing of oxycodone. Continue scheduled tylenol. Trial heat. On lyrica. (6) Discharge planning issues: Status: Acute Assessment and plan: Full code PT consulted. Not ready for discharge (7) DVT prophylaxis: Status: Acute Assessment and plan: SC enoxaparin Subjective Subjective Patient reports: no new complaints, feels better and tolerating a regular diet; denies shortness of breath or afebrile Exam Narrative Exam Narrative: General: Pleasant, smiling, cooperative. Cardiovascular: RRR, no murmur. Lungs: Coarse exp wheezes throughout but good air excursion. Gastrointestinal: soft, nontender, nondistended Genitourinary: no franco Extremities: 1+ BLE edema Objective Last Vital Signs Temp 36.8 C 05/27/23 15:16 Pulse 78 05/27/23 15:16 Resp 22 05/27/23 06:46 BP 91/62 L 05/27/23 15:16 Pulse Ox 90 L 05/27/23 15:16 Laboratory Results - last 24 hr 05/27/23 05/27/23 06:41 06:41 WBC 12.08 H RBC 4.80 Hgb 13.6 Hct 43.6 MCV 91 MCH 28.3 MCHC 31.2 L RDW 14.9 H Plt Count MPV Immature Gran % 0.3 Neutrophils % 61.1 Lymphocytes % 29.4 Monocytes % 8.1 Eosinophils % 0.7 Basophils % 0.4 Nucleated RBC % 0.0 Absolute Neutrophils 7.38 H Absolute Lymphocytes 3.55 H Absolute Monocytes 0.98 H Absolute Eosinophils 0.08 Absolute Basophils 0.05 RBC Morphology Normal Sodium 146 H Potassium 3.7 Chloride 107 Carbon Dioxide 28.8 Anion Gap 10.2 BUN 39 H Creatinine 0.9 Est GFR (CKD-EPI 2020) 67.08 Glucose 104 Calcium 8.4 L Magnesium 1.7 L Time Spent with Patient Time Spent with Patient: 25-34 minutes Time was spent: preparing to see the patient(eg.review tests), obtaining and/or reviewing separately otained hiistory, ordering medications,tests, procedures, referring, communicating with other health child care associate teacher, indepentently interpreting results and counseling the patient
[2023-05-27] MEDS: NIFEdipine-CR 30 MG TABCR PO (20:36)
[2023-05-27] MEDS: Doxepin 10 MG CAP PO (20:37)
[2023-05-28] VITALS (8 sets, daily range): BP systolic 115–128; BP diastolic 66–78; PULSE 55–88; RESP 1–22; TEMP 36.6–37.2; O2SAT 88–98
[2023-05-28] MEDS: Acetaminophen 500 MG TAB 1000 MG PO ×3 (00:30→15:30)
[2023-05-28] MEDS: Albuterol/Ipratropium 3 ML UPD VIAL UPD ×3 (05:35→17:35)
[2023-05-28] MEDS: Metoprolol 50 MG TAB PO ×2 (06:23→14:06)
[2023-05-28 06:37] LABS: Abs Immature Grans 0.04 10^3/uL (0.0-0.06); Absolute Basophil Count 0.07 10^3/uL (0.0-0.2); Absolute Eosinophil Count 0.23 10^3/uL (0.0-0.7); Absolute Lymphocyte Count 4.14 10^3/uL (1.2-3.4); Basophils % 0.6; Eosinophils % 1.9; HCT 44.2 % (36.0-46.0); Immature Grans % 0.3; Lymphocytes % 34.6; MCH 28.4 pg (27.0-33.0); MCHC 31.7 % (32.0-36.0); MCV 90 fL (80-95); MPV 10.1 fL (8.0-11.0); Monocytes % 7.4; Neutrophils % 55.2; Platelet Count 309 10^3/uL (130-400); RBC 4.93 10^6/uL (3.93-5.22); RDW 14.6 % (11.7-14.6); RDW-SD 48.5 fL; WBC 11.96 10^3/uL (4.4-10.8)
[2023-05-28 06:43] LABS: Absolute Monocyte Count 0.89 10^3/uL (0.1-0.8)
[2023-05-28] MEDS: Budesonide/Formoterol 80/4.5 6.9 GM 60 PUFF INH IH ×2 (07:55→19:48)
[2023-05-28] MEDS: Furosemide 40 MG/4 ML VIAL IVP (08:14)
[2023-05-28] MEDS: Lisinopril 20 MG TAB 40 MG PO (08:14)
[2023-05-28] MEDS: predniSONE 20 MG TAB 40 MG PO (08:14)
[2023-05-28] MEDS: DULoxetine 20 MG CAP 40 MG PO ×2 (08:14→19:47)
[2023-05-28] MEDS: Atorvastatin 20 MG TAB PO (08:14)
[2023-05-28] MEDS: Pregabalin 150 MG CAP PO ×2 (08:14→19:48)
[2023-05-28] MEDS: Doxycycline Hyclate 100 MG CAP PO ×2 (08:14→19:47)
[2023-05-28] MEDS: Pantoprazole 40 MG VIAL IVP (08:14)
[2023-05-28] MEDS: Normal Saline Flush 10 ML SYR IVP ×2 (08:14→13:17)
[2023-05-28] MEDS: oxyCODONE 15 MG TAB PO ×3 (10:05→21:08)
[2023-05-28] MEDS: Enoxaparin 40 MG/0.4 ML SYR SC (10:05)
[2023-05-28] MEDS: Ketorolac 15 MG/ML VIAL IVP (13:17)
--- NOTE | 2023-05-28 15:32 | W.PM.PROGNOT ---
Date of Service Date of service: 05/28/23 Time of Service: 15:33 Assessment and Plan Assessment and plan (1) Acute respiratory failure with hypoxia and hypercarbia: Status: Acute Assessment and plan: Due to a combination of CHF and COPD exacerbations/acute bronchitis. Now on RA with O2 saturations generally in the low 90's. Diuresing. Continue steroids, nebulizer treatments, antitussives, empiric doxycycline. Procalcitonin negative. Stop doxycycline at time of d/c. No evidence of PNA on imaging. (2) Acute on chronic right-sided congestive heart failure: Status: Acute Assessment and plan: As above Now on oral lasix 40mg daily. (3) COPD with acute exacerbation: Status: Acute Assessment and plan: As above (4) Musculoskeletal chest pain: Status: Acute Assessment and plan: Treat with scheduled tylenol, oxycodone prn. The patient is also on lyrica. (5) Radiculopathy: Status: Chronic Assessment and plan: As the pain is now better, has returned to prior (outpatient) dosing of oxycodone. Continue scheduled tylenol. Trial heat. On lyrica. (6) Discharge planning issues: Status: Acute Assessment and plan: Full code PT consulted. Planned d/c in AM (7) DVT prophylaxis: Status: Acute Assessment and plan: SC enoxaparin Subjective Subjective Patient reports: no new complaints, feels better and afebrile; denies nausea, vomiting or shortness of breath Exam Narrative Exam Narrative: General: Pleasant, smiling, cooperative. Lying n bed Cardiovascular: RRR, no murmur. Lungs: Soft exp wheeze; much improved. Good air movement. Gastrointestinal: soft, nontender, nondistended Genitourinary: no franco Extremities: 1+ BLE edema Objective Last Vital Signs Temp 37.2 C 05/28/23 11:20 Pulse 88 05/28/23 11:20 Resp 18 05/28/23 11:20 BP 120/78 05/28/23 11:20 Pulse Ox 97 05/28/23 11:20 Laboratory Results - last 24 hr 05/28/23 06:00 WBC 11.96 H RBC 4.93 Hgb 14.0 Hct 44.2 MCV 90 MCH 28.4 MCHC 31.7 L RDW 14.6 Plt Count 309 MPV 10.1 Immature Gran % 0.3 Neutrophils % 55.2 Lymphocytes % 34.6 Monocytes % 7.4 Eosinophils % 1.9 Basophils % 0.6 Nucleated RBC % 0.0 Absolute Neutrophils 6.60 Absolute Lymphocytes 4.14 H Absolute Monocytes 0.89 H Absolute Eosinophils 0.23 Absolute Basophils 0.07 Time Spent with Patient Time Spent with Patient: 25-34 minutes Time was spent: preparing to see the patient(eg.review tests), obtaining and/or reviewing separately otained hiistory, ordering medications,tests, procedures, referring, communicating with other health healthcare applications analyst, indepentently interpreting results and counseling the patient
[2023-05-28] MEDS: Doxepin 10 MG CAP PO (21:08)
[2023-05-28] MEDS: Melatonin 3 MG TAB 9 MG PO (21:08)
[2023-05-28] MEDS: NIFEdipine-CR 30 MG TABCR PO (21:08)
[2023-05-28] MEDS: traZODone 50 MG TAB 150 MG PO (21:08)
[2023-05-29] VITALS (7 sets, daily range): BP systolic 118; BP diastolic 78; PULSE 50–68; RESP 7–20; TEMP 36.9; O2SAT 84–94
[2023-05-29] MEDS: Albuterol/Ipratropium 3 ML UPD VIAL UPD ×2 (00:38→06:02)
[2023-05-29] MEDS: Acetaminophen 500 MG TAB 1000 MG PO ×2 (00:39→08:29)
--- NOTE | 2023-05-29 00:51 | NUR.NOTE ---
Nursing Note: SpO2 assessed prior to neb tx and noted to be consistently in mid-80s on RA. Improved to 92% after tx. Pt refused to wear NC.
[2023-05-29] MEDS: Metoprolol 50 MG TAB PO (06:38)
[2023-05-29] MEDS: Budesonide/Formoterol 80/4.5 6.9 GM 60 PUFF INH IH (07:57)
--- NOTE | 2023-05-29 08:02 | OTIE_ITS ---
Occupational Therapy Notes Inpatient Occupational Therapy Evaluation Date: 05/29/23 Referring Doctor:Joselyn Felix MD OT Orders: Fall, standard, full Precautions: Non -Urgent PATIENT PROFILE/ADMITTING DIAGNOSIS: Pt is a 72 year old female who was referred to skilled Occupational Therapy services for a dx of worsening cough and shortness of breath.She is admitted to [facility] for management of acute respiratory failure with hypoxia and hypercarbia, acute on chronic right-sided CHF, COPD exacerbation, as well as musculoskeletal chest pain, and radiculopathy. Past Medical History: All Active Problems?(Updated 05/25/23 @ 21:36 by Joselyn Felix MD) Radiculopathy (Chronic) Musculoskeletal chest pain (Acute) Discharge planning issues (Acute) DVT prophylaxis (Acute) Acute on chronic right-sided congestive heart failure (Acute) Candidiasis of breast (Acute) Acute respiratory failure with hypoxia and hypercarbia (Acute) COPD with acute exacerbation (Acute) Medical History?(Updated 05/25/23 @ 21:36 by Joselyn Felix MD) (HFpEF) heart failure with preserved ejection fraction HTN (hypertension) with goal to be determined Intentional overdose Obesity Social History/Home Situation: Lauren currently lives in an [facility] home in [place] but states that she iis from [place], [place]. She has two daughters who she speaks about briefly when asked. Lauren was living (I) in her own apartment in [place] until she had a prolonged stay at [facility] in the Psychiatric unit per CM note. Pt states that she wants to return to her apartment and wants to live (I) when she leaves here. SUBJECTIVE: Pt was lying in bed when OT arrived. She reports that she is doing well but barely awake this morning noting that everyone keeps coming into her room. OBJECTIVE: General Observation: Pleasant, IV in UE Mental Status: A&Ox3 Pain: no c/o pain with this OT ROM: RUE AROM WFL L UE AROM WFL STRENGTH: RUE 5/5 throughout LUE 5/5 throughout FUNCTIONAL MOBILITY/ADLS: Pt refused ADLS at this time. EATING (I) drinking her coffee, fine motor control for opening packages, hand control and hand to mouth BALANCE: Static sitting Good Dynamic Sitting Good INFORMED CONSENT/EDUCATION: Pt instructed in purpose of OT Consult and plan of care. ASSESSMENT: Patient is a 72 -year-old female referred to occupational therapy services with diagnosis of acute respiratory failure with hypoxia and hypercarbia, acute on chronic right-sided CHF, COPD exacerbation, as well as musculoskeletal chest pain, and radiculopathy. Patient presents with clinical signs and symptoms consistent with dx, as demonstrated by the following impairment level findings/functional limitations: Impairments in ADL/IADL and leisure activities, decreased functional activity tolerance, increased fatigue. Patient is assessed as a Low 49218 complexity based on the following: History: see above Examination: see functional limitations as noted above Presentation: evolving Decision Making: low complexity GOALS Goals- N/A seen for OT consult only PLAN OF CARE/TREATMENT PLAN: Pt reports that she does not feel that she needs skilled OT services at this t julia and refuses services moving forward. Based on this OT will plan to discharge pts order and if MD feels that pt would benefit from continued services moving forward OT would need a new referral at that time. DISCHARGE RECOMMENDATIONS Home with services to (A) with progressional functional mobility and (I) in her ADL/IADL routines. TREATMENT TIME/MINUTES/CODES 18310, 15 minutes Mony Figueroa OTR/L [facility] [place], [place]
[2023-05-29] MEDS: DULoxetine 20 MG CAP 40 MG PO (08:30)
[2023-05-29] MEDS: Atorvastatin 20 MG TAB PO (08:30)
[2023-05-29] MEDS: Doxycycline Hyclate 100 MG CAP PO (08:30)
[2023-05-29] MEDS: Lisinopril 20 MG TAB 40 MG PO (08:30)
[2023-05-29] MEDS: Pregabalin 150 MG CAP PO (08:30)
[2023-05-29] MEDS: Furosemide 40 MG/4 ML VIAL IVP (08:31)
[2023-05-29] MEDS: Pantoprazole 40 MG VIAL IVP (08:31)
[2023-05-29] MEDS: predniSONE 20 MG TAB 40 MG PO (08:31)
[2023-05-29] MEDS: Normal Saline Flush 10 ML SYR IVP (08:31)
--- NOTE | 2023-05-29 09:04 | W.PM.DS.N ---
Date of service: 05/29/23 Time of Service: 09:05 DS: Diagnosis Discharge Diagnosis (1) Acute respiratory failure with hypoxia and hypercarbia: Status: Acute Asessment and Plan: Due to a combination of CHF and COPD exacerbations/acute bronchitis. Now on RA with O2 saturations generally in the low 90's. Diuresed well with IV lasix; now back on home dose of po lasix. She received daily prednisone during this hospitalization; will not continue at d/c. (2) Acute on chronic right-sided congestive heart failure: Status: Acute Asessment and Plan: Echocardiograma: Study Quality: Poor. Technically limited study due to body habitus, inability to position patient, patient inability to perform breathing maneuvers. Conclusion Technically suboptimal study Left ventricle appears grossly normal in size.? EF is 50 to 55%.? No segmental wall motion abnormalities are identified Right ventricle appears mildly dilated S/P diureses with IV lasix. Now back on home oral dose of lasix. No longer requiring supplemental O2. Low Na diet information given. (3) COPD with acute exacerbation: Status: Acute Asessment and Plan: Nebulizer treatments and oral prednisone implemented. Doxycycline administered; course completed. (4) Radiculopathy: Status: Chronic Asessment and Plan: Chronic pain and radiculopathy. Worked with PT. She wasn't interested in using a 4 WWW. Will continue self-transfers to motorized chair. Cont her chronic pain meds. (5) Discharge planning issues: Status: Acute Asessment and Plan: Discharging back to her [facility] home. She is determined to return to her apartment in [place]. However, we were informed that she was evicted, though [place] states she has worked that issue out. Her daughter has significant concerns about the patients ability to live independently. She is s/p a long hospitalization at [facility] in the Psychiatric unit. Discharge Plan Disposition Patient Disposition: Home Condition: Improving Discharge Details Reason For Visit: Acute Exacerbation of CHF,?COPD,Pulmonary Hyperten Admit Date/Time: 05/25/23 07:38 Admit Provider: Joselyn Felix Attending Provider: Joselyn Felix Primary Care Provider: Unknown,Unknown Hospital Course Hospital Course: MS Ruby is a 72 year old female with PMHx of non-oxygen dependent COPD, CHFpEF, h/o pulmonary hypertension, h/o prior intentional overdose on BB, for which she had a prolonged hospitalization, including a psychiatric stay, at [facility] in January of this year, who now resides at an [facility] home and was brought to [facility] ED this morning with a couple of days of worsening shortness of breath, productive cough, but no fevers/chills. The patient described vomiting phlegm. She also reported chest pain, which was central, worse with inspiration and cough. She additionally had LUE pain and neck pain - this is chronic, and she takes oxycodone for it. She says she is compliant wiht a low sodium diet, has not gained weight, though she has noticed worsening swelling. Sputum is yellow in color. She states she spent all day yesterday vomiting sputum. ? In the ER, she was found to be wheezing and fluid overloaded. She required 1L of O2 to saturate 90%.? She was found to be edematous. She received IV furosemide as she also had evidence of B lines on POCUS in the ER. Hospitalist admission was requested. While there was a report of hypotension upon arrival to the medical surgical floor, this was not confirmed on a manual recheck and the patient has actually been hypertensive since then. On hospitalists repeat visit to get more history, the patient is not satisfied with her pain control, even though her pain is chronic and she got her chronic pain medications for it. She dismisses me from the room, saying thank you, thank you very much, you have a good night. See Diagnosis PCP f/u in 1-2 weeks. Home Meds and New Rx's Prescriptions: Continued sennosides [senna] 8.6 mg Tablet 8.6 mg PO DAILY PRN atorvastatin 20 mg Tablet 20 mg PO DAILY oxycodone 15 mg Tablet 15 mg PO TID PRN pantoprazole 40 mg Tablet,Delayed Release (Dr/Ec) 40 mg PO DAILY furosemide 20 mg Tablet 20 mg PO DAILY albuterol sulfate 90 mcg/actuation Hfa Aerosol Inhaler 2 puff INHALATION QID PRN melatonin 10 mg Tablet 10 mg PO HS PRN duloxetine 40 mg Capsule,Delayed Release(Dr/Ec) 40 mg PO BID doxepin 10 mg capsule 10 mg PO HS trazodone 150 mg tablet 150 mg PO HS PRN Patient Comments: TAKE 1 TABLET BY MOUTH EVERYDAY AT BEDTIME lisinopril 40 mg tablet 40 mg PO DAILY budesonide-formoterol [Symbicort] 80-4.5 mcg/actuation HFA aerosol inhaler 1 puff INHALATION BID Patient Comments: INHALE 1 PUFF BY MOUTH EVERY 12 HOURS DIRECTED FOR 14 DAYS nifedipine 30 mg tablet extended release 30 mg PO DAILY Patient Comments: TAKE ONE TABLET BY MOUTH AT BEDTIME pregabalin 150 mg capsule 150 mg PO BID Patient Comments: TAKE ONE CAPSULE BY MOUTH TWICE A DAY Changed metoprolol succinate 100 mg tablet extended release 24 hr 100 mg PO HS Qty: 0 0RF Discharge Instructions Instructions: Heart Failure (DC), COPD (Chronic Obstructive Pulmonary Disease) (DC), Low-Sodium Diet (GEN) Stand Alone Forms: Nursing Discharge Form Referrals: Unknown,Unknown [Primary Care Provider] - (Follow up per [facility] Home with your PCP Doctor ) Activity:: Activity as Tolerated Equipment/Supplies:: No Equipment Needed Diet:: Low Sodium Discharge Orders Discharge Orders: Discharge Order (Routine); Ordered 05/29/23 Ordered By: Jim Saleem DS: Summary Time Spent with Patient providing and/or coordinating discharge services: Greater than 30 minutes Status at Discharge Functional status at discharge: wheelchair bound (Uses electric chair for mobility. ) Overall status at discharge: patient is progressing back to baseline Mental Status: mental status grossly normal Speech and Movement: speech clear Mood: congruent mood Affect: normal affect Exam Narrative Exam Narrative: General: Pt is lying in bed asleep. Readily wakens to verbal stimuli. Pleasant and cooperative. States she feels well. Cardiovascular: RRR, no murmur. Lungs: Soft exp wheeze; much improved. Good air movement. Gastrointestinal: soft, nontender, nondistended Genitourinary: no franco Extremities: tr - 1+ BLE edema Psych Mental Status: mental status grossly normal Speech and Movement: speech clear Mood: congruent mood Affect: normal affect DS: Data Vitals/I&O Vitals and I&O: Vital Signs Temperature 36.9 C 05/29/23 07:54 Temperature Source Tympanic 05/29/23 07:54 Pulse 62 05/29/23 07:54 Pulse Rhythm Regular 05/29/23 08:38 Pulse 81 05/25/23 08:31 Respiratory Rate 16 05/29/23 07:54 Respiratory Effort Normal, Non-Labored 05/29/23 08:38 Respiratory Depth Normal 05/29/23 08:38 Respiratory Pattern Normal 05/29/23 08:38 Blood Pressure 118/78 05/29/23 07:54 Blood Pressure Mean 97 05/25/23 08:30 Blood Pressure Position Sitting 05/25/23 03:25 Pulse Oximetry 91 L 05/29/23 07:59 Oxygen Delivery Method Room Air 05/29/23 07:59 Oxygen Flow Rate 0 05/29/23 07:59 Fraction of Inspired Oxygen (FIO2) 89 05/27/23 21:51 Pain Level 8 05/29/23 07:54 Comment SpO2 improved after neb tx. Declined to wear NC for supplemental oxygen. 05/29/23 00:45 Intake & Output 05/28/23 05/28/23 05/29/23 11:59 23:59 11:59 Intake Total Output Total 600 / 1100 500 / 1100 300 / 300 Balance -580 / -1080 -500 / -1080 -300 / -300 Weight 98.021 kg Intake: IV Output: Urine 600 / 1100 500 / 1100 300 / 300 Other: Urine Color Yellow Yellow Dark Ana Urine Appearance Clear Clear Urine Odor Strong Strong Strong Comment pT incont. in bed and 200 out on bedside commode Voided in commode; brief on for comfort- damp. per patient, voided last PM @ 10PM Stool Size Large Moderate Stool Characteristics Formed Formed Brown Voiding Methods Bedside Commode Bedside Commode Bedside Commode Diaper Incontinent PFSH All Active Problems Radiculopathy (Chronic) Musculoskeletal chest pain (Acute) Discharge planning issues (Acute) DVT prophylaxis (Acute) Acute on chronic right-sided congestive heart failure (Acute) Candidiasis of breast (Acute) Acute respiratory failure with hypoxia and hypercarbia (Acute) COPD with acute exacerbation (Acute) Medical History (HFpEF) heart failure with preserved ejection fraction HTN (hypertension) with goal to be determined Intentional overdose Obesity Social History Smoking/Tobacco Use Status: Current every day Smoking risk assessment performed?: Yes Alcohol Intake: never Drug use: Never Substance use type: does not use Housing: house Time Spent with Patient Time Spent with Patient: 45-69 minutes Time was spent: preparing to see the patient(eg.review tests), obtaining and/or reviewing separately otained hiistory, referring, communicating with other health child care leader, indepentently interpreting results, counseling the patient and care coordination
--- NOTE | 2023-05-29 12:15 | CMDISCH_ITS ---
Date of service: 05/29/23 Time of Service: 12:15 LACE Index Scoring Tool Questions: Length of Stay (in days): 4 - 6 Was the patient admitted via the E.D.?: Yes Comorbidities: Congestive Heart Failure and Chronic Pulmonary Disease E.D. Visits: 0 Answers: Total Score: 12 Risk of Readmission: High Risk Care Management Discharge Plan Reason for Hospitalization: Acute respiratory failure with hypoxia and hypercarbia; COPD exacerbation Discharge Plan: Lauren will return to the [facility] home where she resides with her 12/06 caregiver, Jessica. ALLIE communicated with Sun, her comp field case manager through [facility], and informed her of Lauren's discharge. She transported via [employer] w/c [employer], coordinated by CM. She will follow up with her PCP and discharge plan of care. Patient/Family Education Needs: Review discharge instructions and limitations, discussion of self care needs including ask me three and goals of care. Services Needed at Discharge: Transportation ([employer] w/c van)
== END 2023-05-29 12:13 | disposition home or self-care (01) | DRG 189 ==
LOC: ER 08:58 → MS 09:01
PROVIDERS: Family Medicine; Admitting Provider Internal Medicine; Emergency Provider Emergency Medicine; Visit Provider Internal Medicine
DX: J96.01 Acute respiratory failure with hypoxia (principal); J44.1 Chronic obstructive pulmonary disease with (acute) exacerbation; J44.0 Chronic obstructive pulmonary disease with (acute) lower respiratory infection; B20 Human immunodeficiency virus [HIV] disease; I50.32 Chronic diastolic (congestive) heart failure; E87.0 Hyperosmolality and hypernatremia; J96.02 Acute respiratory failure with hypercapnia; I50.813 Acute on chronic right heart failure; R07.89 Other chest pain; J20.9 Acute bronchitis, unspecified; I27.20 Pulmonary hypertension, unspecified; M54.10 Radiculopathy, site unspecified; B37.2 Candidiasis of skin and nail; E66.9 Obesity, unspecified; Z68.39 Body mass index [BMI] 39.0-39.9, adult; I11.0 Hypertensive heart disease with heart failure; F17.210 Nicotine dependence, cigarettes, uncomplicated; Z91.51 Personal history of suicidal behavior; G89.29 Other chronic pain; Z99.3 Dependence on wheelchair; R73.9 Hyperglycemia, unspecified; K21.9 Gastro-esophageal reflux disease without esophagitis; Z86.718 Personal history of other venous thrombosis and embolism
CPT/HCPCS: 36415; 71275; 80048; 80053; 82805; 84145; 87637; 93005; 93306; 93308; 94640; 97161; 97165; 97530; J1650; J3490; 83735; 83880; 84484; 85025; 93010; 93970; 94664; 94667; 94668; 94760; 99223; 99231; 99232; 99239; J1885; J1940; J1941; J2405; J2930; J7512; J7620